=== PATIENT | female | born 1985 | race Caucasian/White ===

== ENCOUNTER → 2019-12-31 | Outpatient (CLI) | payer BC ==
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
== END ==
LOC: RAD 08:01
PROVIDERS: ATTEND Physician Assistant
DX: M54.2 Cervicalgia (principal)
CPT/HCPCS: 70490

== ENCOUNTER → 2022-06-21 | Outpatient (CLI) | payer BC, OTHER ==
[2022-06-21 11:33] LABS: HEMATOCRIT 37 % (35-52); HEMOGLOBIN 12.4 g/dL (11.5-16.0); MEAN CORPUSCULAR HEMOGLOBIN 30 pg (25-34); MEAN CORPUSCULAR HGB CONC 34 g/dL (32-36); MEAN CORPUSCULAR VOLUME 89 fL (80-99); MEAN PLATELET VOLUME 9.1 fL (9.0-12.2); PLATELET COUNT 338 10^3/uL (130-400); WHITE BLOOD COUNT 9.1 10^3/uL (4.3-11.0)
[2022-06-21 11:53] LABS: BILIRUBIN,TOTAL 0.5 MG/DL (0.1-1.0); CALCIUM 8.3 MG/DL (8.5-10.1); CREATININE SERUM 0.8 MG/DL (0.60-1.30); POTASSIUM 4.1 MMOL/L (3.6-5.0); TOTAL PROTEIN 6.6 GM/DL (6.4-8.2)
--- NOTE | 2022-06-21 19:11 | Diagnostic Imaging Report ---
EXAM: TMJ, BILATERAL INDICATION: Left jaw pain. COMPARISON: None. FINDINGS: No fracture or malalignment. Normal anterior translation of the mandibular condyles in the open position. No suspicious osteoblastic or lytic lesions are identified. IMPRESSION: Normal bilateral temporomandibular joint radiographs. Dictated by: Dictated on workstation # [id number]
== END ==
LOC: LAB 11:18
PROVIDERS: ATTEND Nurse Practitioner Family
DX: Z00.00 Encounter for general adult medical examination without abnormal findings (principal); R68.84 Jaw pain; E88.81 Metabolic syndrome and other insulin resistance
CPT/HCPCS: 36415; 70330; 80053; 80061; 83036; 84443; 85027